=== PATIENT | female | born 1990 | race Caucasian/White ===

== ENCOUNTER 2018-12-21 00:51 | Outpatient (CLI) | payer MEDICAID ==
[~2018-12-21] VITALS: Ht 160 cm; Wt 99.9 kg
--- NOTE | 2018-12-21 00:55 | NUR ---
JESSI OLMEDO presented to unit via wheelchiar from ED, accompanied by s/o , with c/o CONTRACTIONS. JESSI OLMEDO weighed, gowned, voided, and to bed. EFHM and TOCO applied, VS taken. JESSI OLMEDO oriented to bed controls, call light, TV, heat, and A/C controls.
[2018-12-21 01:23] LABS: BILIRUBIN,URINE NEGATIVE (NEGATIVE); CLARITY,URINE CLEAR; COLOR,URINE YELLOW; GLUCOSE, URINE (UA) NEGATIVE (NEGATIVE); KETONES,URINE NEGATIVE (NEGATIVE); LEUKOCYTE ESTERASE ,URINE 2+ (NEGATIVE); NITRITE,URINE NEGATIVE (NEGATIVE); PH,URINE 7 (5-9); PROTEIN,URINE NEGATIVE (NEGATIVE); UROBILINOGEN,URINE NORMAL (NORMAL)
[2018-12-21 01:30] LABS: BACTERIA,URINE TRACE /HPF
[2018-12-21 02:26] VITALS: BP 120/72
[2018-12-21] MEDS ORDERED: hydrOXYzine (VISTARIL/ATARAX) 25 MG capsule/tablet PO ONE (03:15)
--- NOTE | 2018-12-21 05:55 | NUR ---
Discharge packet given and explained, no ss distress, no concerns noted, understanding voiced by pt, ambulatory off unit at this time accompanied by s/o.
--- NOTE | 2018-12-21 06:05 | NUR ---
NO RECORD AVAILABLE AT TIME OF VISIT GBS results present and negative.
--- NOTE | 2018-12-24 15:58 | Physician Query-Final Dx ---
LATIA OWEN 12/24/18 1558: Clinic Account Progress/Dx Physician Query: Please give diagnosis Please be sure to add the weeks of gestations Date of Service Dec 21, 2018 at 00:51 RAMIRO PEPE 12/27/18 1657: LATIA OWEN Dec 24, 2018 15:58 RAMIRO PEPE Dec 27, 2018 16:57
== END 2018-12-21 05:55 | disposition home or self-care (01) ==
LOC: WSo 00:51 → LDRP 00:53 → WSo 05:55
PROVIDERS: ATTEND Family Medicine
DX: O62.9 Abnormality of forces of labor, unspecified (principal); Z3A.39 39 weeks gestation of pregnancy
CPT/HCPCS: 81000; 99214

== ENCOUNTER 2018-12-28 05:47 | Inpatient (IN) | payer MEDICAID ==
[~2018-12-28] VITALS: Ht 160 cm; Wt 100.7 kg
[2018-12-28] VITALS (50 sets, daily range): BP systolic 82–166; BP diastolic 45–92
--- NOTE | 2018-12-28 05:50 | NUR ---
JESSI OLMEDO presented to unit via ambulation from home/ED, accompanied by SO, for INDUCTION. JESSI OLMEDO weighed, gowned, voided, and to bed. EFHM and TOCO applied, VS taken. JESSI OLMEDO oriented to bed controls, call light, TV, heat, and A/C controls.
[2018-12-28] MEDS ORDERED: MINERAL OIL CONCENTRATE 99.9% 15 ML UDC TOP PRN (06:15)
[2018-12-28 06:25] LABS: BASOPHILS % (AUTO) 0 % (0-10); EOSINOPHILS # (AUTO) 0.1 10^3/uL (0.0-0.3); EOSINOPHILS % (AUTO) 1 % (0-10); HEMATOCRIT 33 % (35-52); HEMOGLOBIN 11.1 G/DL (11.5-16.0); LYMPHOCYTES # (AUTO) 1.7 X 10^3 (1.0-4.0); LYMPHOCYTES % (AUTO) 21 % (12-44); MEAN CORPUSCULAR HEMOGLOBIN 31 PG (25-34); MEAN CORPUSCULAR HGB CONC 33 G/DL (32-36); MEAN CORPUSCULAR VOLUME 94 FL (80-99); MEAN PLATELET VOLUME 10.3 FL (7.4-10.4); MONOCYTES # (AUTO) 0.8 X 10^3 (0.0-1.0); MONOCYTES % (AUTO) 10 % (0-12); NEUTROPHILS # (AUTO) 5.4 X 10^3 (1.8-7.8); NEUTROPHILS % (AUTO) 68 % (42-75); PLATELET COUNT 178 10^3/uL (130-400)
[2018-12-28] MEDS ORDERED: OXYTOCIN/NORMAL SALINE 500 ML IV ONE (07:07)
[2018-12-28] MEDS: D5 LR IV SOLUTION 1,000 ML IV SCH ×3 (07:18→11:12)
--- NOTE | 2018-12-28 07:45 | NUR ---
Cervix very high and posterior. Dr Moreland notified - will proceed with pitocin induction. Physician stated she was 3cms and posterior in office.
[2018-12-28] MEDS ORDERED: OXYTOCIN/NORMAL SALINE 500 ML IV SCH ×3 (08:00→15:30)
[2018-12-28] MEDS ORDERED: SUFENTA 0.6MCG/ML BUPIVA 0.125 100 ML ONE (09:34)
[2018-12-28] MEDS ORDERED: LACTATED RINGERS 1,000 ML IV SCH (10:42)
[2018-12-28] MEDS ORDERED: METOCLOPRAMIDE INJ 10 MG/2 ML (REGLAN) IV PRN (10:45)
[2018-12-28] MEDS ORDERED: ONDANSETRON 4 MG/2 ML (SDV) Z0FRAN IV PRN (10:45)
[2018-12-28] MEDS ORDERED: NALOXONE 0.4 MG/ML 1 ML (NARCAN) VIAL IV PRN ×2 (10:45)
[2018-12-28] MEDS ORDERED: diphenhydrAMINE 50 MG/ML INJ (BENADRYL) IV PRN (10:45)
[2018-12-28] MEDS ORDERED: EPIDURAL (SUFENTA 0.6MCG/ML BUPIVA 0.125%) 100 ML BAG EPI SCH (10:45)
--- NOTE | 2018-12-28 12:22 | Labor Progress Note ---
Labor Progress Note Labor Progress Note Date Seen by Provider: Dec 28, 2018 Time Seen by Provider: 12:00 Subjective: Pt denies complaints. Objective: Cervical exam: 5cm Consistency: soft Position: mid-posterior Presentation: vtx heart tones: 140 beats per minute, good variability, reactive Tocometer: q2min Assessment/Plan: Aneta Jett is a (28 /Para / ,Gestational Age (wks)39 here for IOL. CEFM/TOCO Continue pitocin AROM w/ clear fluid, reassuring FHT. Anesthesia: epidural, pt is comfortable Anticipate vaginal delivery. Vitals - Labs Vital Signs - I&O Vital Signs Date Time Temp Pulse Resp B/P (MAP) Pulse Ox O2 Delivery O2 Flow Rate FiO2 12/28/18 06:14 98.7 96 18 104/68 (80) Room Air Labs Laboratory Tests 12/28/18 06:05: White Blood Count 8.0, Red Blood Count 3.56L, Hemoglobin 11.1L, Hematocrit 33L, Mean Corpuscular Volume 94, Mean Corpuscular Hemoglobin 31, Mean Corpuscular Hemoglobin Concent 33, Red Cell Distribution Width 14.0, Platelet Count 178, Mean Platelet Volume 10.3, Neutrophils (%) (Auto) 68, Lymphocytes (%) (Auto) 21, Monocytes (%) (Auto) 10, Eosinophils (%) (Auto) 1, Basophils (%) (Auto) 0, Neutrophils # (Auto) 5.4, Lymphocytes # (Auto) 1.7, Monocytes # (Auto) 0.8, Eosinophils # (Auto) 0.1, Basophils # (Auto) 0.0 RICK SOLORZANO DO Dec 28, 2018 12:22
[2018-12-28] MEDS ORDERED: CATHETER FLUSH 10 ML SYR IV SCH ×2 (14:00→22:00)
[2018-12-28] MEDS ORDERED: LIDOCAINE/EPI 2% 1:200,00 (XYLOCAINE) 10 ML VIAL ONE (14:24)
--- NOTE | 2018-12-28 14:57 | History & Physical-OB ---
OB - Chief Complaint & HPI Date/Time Date of Admission: Date of Admission: Dec 28, 2018 at 05:47 Date seen by a Provider: Dec 28, 2018 Time Seen by a Provider: 14:20 Chief Complaint/History OB-Reason for Admission/Chief: Induction of Labor Hx : 3 Hx Para: 2 Expected Date of Delivery: Jan 04, 2019 Gestational Age in Weeks: 39 Gestational Age in Days: 0 Indication for induction: maternal distance Admission Nurse Assessment Rev: Yes Allergies and Home Medications Allergies Coded Allergies: Penicillins (Verified Allergy, Severe, Anaphylaxis, 12/21/18) codeine (Verified Allergy, Severe, Anaphylaxis, 12/21/18) latex (Verified Allergy, Intermediate, Rash, 12/21/18) Home Medications No Active Prescriptions or Reported Meds Patient Home Medication List Home Medication List Reviewed: Yes OB - History Hx of Present Care: Yes Ultrasounds: Normal mid trimester US Obstetrical Complications: None Medical Complications: None Patient Past Medical History previously healthy Social History/Family History HIV/AIDS: No Sexually Transmitted Disease: No Alcohol Use: Denies Use Recreational Drug Use: No Immunizations Hepatitis A: No Hepatitis B: No OB - Admission Exam Physical Exam Vitals: Vital Signs 12/28/18 06:14 Temp 98.7 Pulse 96 Resp 18 B/P (MAP) 104/68 (80) O2 Delivery Room Air HEENT: NCAT Heart: Rhythm Normal Lungs: Clear Abdomen: Gravid Extremities: Normal Reflexes: Normal Cervical Dilatation: 10cm Effacement: 100% Station: 0 Membranes: Ruptured Amniotic Fluid: Clear Heart Rate: 130's Accelerations: Accelerations Present Decelerations: No Decelerations Short Term Variability: Present Hrbp Variability: Average (6-25) Contractions on Admission: None Labs Laboratory Tests Test 12/28/18 06:05 Range/Units White Blood Count 8.0 4.3-11.0 10^3/uL Red Blood Count 3.56 L 4.35-5.85 10^6/uL Hemoglobin 11.1 L 11.5-16.0 G/DL Hematocrit 33 L 35-52 % Mean Corpuscular Volume 94 80-99 FL Mean Corpuscular Hemoglobin 31 25-34 PG Mean Corpuscular Hemoglobin Concent 33 32-36 G/DL Red Cell Distribution Width 14.0 10.0-14.5 % Platelet Count 178 130-400 10^3/uL Mean Platelet Volume 10.3 7.4-10.4 FL Neutrophils (%) (Auto) 68 42-75 % Lymphocytes (%) (Auto) 21 12-44 % Monocytes (%) (Auto) 10 0-12 % Eosinophils (%) (Auto) 1 0-10 % Basophils (%) (Auto) 0 0-10 % Neutrophils # (Auto) 5.4 1.8-7.8 X 10^3 Lymphocytes # (Auto) 1.7 1.0-4.0 X 10^3 Monocytes # (Auto) 0.8 0.0-1.0 X 10^3 Eosinophils # (Auto) 0.1 0.0-0.3 10^3/uL Basophils # (Auto) 0.0 0.0-0.1 10^3/uL OB - Assessment/Plan/Diagnosis Assessment Assessment: induction of labor Admission Dx here for induction at 39 0/7 wga. Admission Status: Inpatient Order (span 2 midnights) Reason for Inpatient Admission: Induction of labor. Plan Induction Method: per Pitocin Protocol MULUGETA PANCHAL MD Dec 28, 2018 14:57
--- NOTE | 2018-12-28 14:59 | OB Labor & Delivery Record ---
Vag Delivery Note Vag Delivery Note Date of Delivery: 12/28/18 Preoperative Diagnosis: Aneta Jett is a (28 /Para 3 / 2, Gestational Age (wks)39with [0 days] Postoperative Diagnosis: Same Surgeon: MULUGETA PANCHAL Dozer Operator: [none] Anesthesia: [epidural] Delivery Type: [] Findings: [] Viable [male] infant, apgars [8/9] Lacerations: Intact placenta with 3 vessel cord. No nuchal cord, body cord or shoulder dystocia Estimated Blood Loss: [200] ml Complications: None Condition: Stable Description of Procedure: The patient is a 28 year old female who presented [for induction of labor]. She was admitted and informed consent was obtained. Her labor course was remarkable for [nothing] She progressed to complete dilatation and began to push. She was then set up for delivery. The 's head was delivered atraumatically in the [OA] position. The shoulders and remainder of the infant's body were then delivered without difficulty. Upon delivery, the infant was bulb suctioned and then placed on maternal abdomen after 60 seconds. Cord clamped and cut by father. An intact placenta with 3-vessel cord delivered via Rosalie and there was found to be minimal bleeding.~ Vigorous fundal massage was performed and the fundus was found to be firm. IV oxytocin was given. Examination of the vagina and perineum revealed no lacerations. Following the repair, sponge, instrument and needle counts were correct. Mom and baby were both in stable condition in the labor suite. Vitals - Labs Vital Signs - I&O Vital Signs Date Time Temp Pulse Resp B/P (MAP) Pulse Ox O2 Delivery O2 Flow Rate FiO2 12/28/18 06:14 98.7 96 18 104/68 (80) Room Air Labs Laboratory Tests 12/28/18 06:05: White Blood Count 8.0, Red Blood Count 3.56L, Hemoglobin 11.1L, Hematocrit 33L, Mean Corpuscular Volume 94, Mean Corpuscular Hemoglobin 31, Mean Corpuscular Hemoglobin Concent 33, Red Cell Distribution Width 14.0, Platelet Count 178, Mean Platelet Volume 10.3, Neutrophils (%) (Auto) 68, Lymphocytes (%) (Auto) 21, Monocytes (%) (Auto) 10, Eosinophils (%) (Auto) 1, Basophils (%) (Auto) 0, N eutrophils # (Auto) 5.4, Lymphocytes # (Auto) 1.7, Monocytes # (Auto) 0.8, Eosinophils # (Auto) 0.1, Basophils # (Auto) 0.0 MULUGETA PANCHAL MD Dec 28, 2018 14:59
[2018-12-28] MEDS ORDERED: MEASLES,MUMPS,RUBELLA 1 EA INJ SQ ONE (15:00)
[2018-12-28] MEDS ORDERED: WITCH HAZEL(TUCKS) 40 EA JAR TOP PRN (15:00)
[2018-12-28] MEDS ORDERED: BENZOCAINE/MENTHOL (DERMOPLAST) 56 ML CAN TP PRN (15:00)
[2018-12-28] MEDS ORDERED: TETANUS,DIPTH,PERTUSS P/F (BOOSTRIX) 0.5 ML VIAL IM ONE (15:00)
--- NOTE | 2018-12-28 15:15 | NUR ---
Epidural dc'd without difficulty. Infant nursed 20 minutes each side at 1530.
[2018-12-28] MEDS: IBUPROFEN 600 MG (MOTRIN) TAB PO SCH ×2 (16:59→22:34)
[2018-12-28] MEDS: DOCUSATE SODIUM 100 MG (COLACE) CAP PO SCH (20:07)
[2018-12-29 00:40] VITALS: BP 95/52
[2018-12-29] MEDS: IBUPROFEN 600 MG (MOTRIN) TAB PO SCH ×4 (04:38→22:10)
[2018-12-29 04:40] VITALS: BP 97/54
[2018-12-29 06:45] LABS: BASOPHILS % (AUTO) 0 % (0-10); EOSINOPHILS % (AUTO) 1 % (0-10); HEMATOCRIT 32 % (35-52); HEMOGLOBIN 10.1 G/DL (11.5-16.0); LYMPHOCYTES # (AUTO) 1.2 X 10^3 (1.0-4.0); LYMPHOCYTES % (AUTO) 15 % (12-44); MEAN CORPUSCULAR HEMOGLOBIN 30 PG (25-34); MEAN CORPUSCULAR HGB CONC 32 G/DL (32-36); MEAN CORPUSCULAR VOLUME 95 FL (80-99); MONOCYTES # (AUTO) 0.7 X 10^3 (0.0-1.0); MONOCYTES % (AUTO) 9 % (0-12); NEUTROPHILS # (AUTO) 5.7 X 10^3 (1.8-7.8); NEUTROPHILS % (AUTO) 76 % (42-75); PLATELET COUNT 132 10^3/uL (130-400); RED CELL DISTRIBUTION WIDTH 14.2 % (10.0-14.5); WHITE BLOOD COUNT 7.6 10^3/uL (4.3-11.0)
--- NOTE | 2018-12-29 08:00 | NUR ---
PT SLEEPING AT THIS TIME.
[2018-12-29 09:00] VITALS: BP 121/63
--- NOTE | 2018-12-29 09:00 | NUR ---
ASSESSMENT COMPLETED. VSS. ICE PACK TO PERINEUM. MILD BRUISING NOTED.
[2018-12-29] MEDS: DOCUSATE SODIUM 100 MG (COLACE) CAP PO SCH ×2 (09:59→22:09)
--- NOTE | 2018-12-29 10:03 | Anesthesia-Regional Post-Op ---
Regional Patient Condition Mental Status: Alert, Oriented x3 Circulation: Same as Pre-Op Headache: Absent Sensation: Full Recovery Motor Block: Absent Post Op Complications Complications None Follow Up Care/Instructions Patient Instructions None needed. Anesthesia/Patient Condition Patient is doing well, no complaints, stable vital signs, no apparent adverse anesthesia problems. No complications reported per nursing. [place] [facility] [place] Yes JEF RUBY CRNA Dec 29, 2018 10:03
--- NOTE | 2018-12-29 10:30 | NUR ---
CARING FOR INFANT IN ROOM. GOOD INTERACTION NOTED.
--- NOTE | 2018-12-29 10:48 | Progress Note ---
Subjective Subjective/Events-last exam Latching well. Having some pain with motrin. Bleeding has slowed. Up and walking around. No concerns. Objective Exam Last Set of Vital Signs Vital Signs Date Time Temp Pulse Resp B/P (MAP) Pulse Ox O2 Delivery O2 Flow Rate FiO2 12/29/18 04:40 97.8 88 20 97/54 (68) 97 Room Air Capillary Refill : I&O Intake and Output 12/29/18 00:00 Intake Total 3810 ml Output Total 300 ml Balance 3510 ml Intake IV Total 3810 ml Output Urine Total 300 ml # Voids 1 Daily Weight Change No General: Alert, Oriented X3 HEENT: Atraumatic Abdomen: Other (fundus firm below umbilicus) Extremities: Other (edema bilaterally; My's negative) Results/Procedures Lab Laboratory Tests 12/29/18 06:26: White Blood Count 7.6, Red Blood Count 3.34L, Hemoglobin 10.1L, Hematocrit 32L, Mean Corpuscular Volume 95, Mean Corpuscular Hemoglobin 30, Mean Corpuscular Hemoglobin Concent 32, Red Cell Distribution Width 14.2, Platelet Count 132, Mean Platelet Volume 10.0, Neutrophils (%) (Auto) 76H, Lymphocytes (%) (Auto) 15, Monocytes (%) (Auto) 9, Eosinophils (%) (Auto) 1, Basophils (%) (Auto) 0, Neutrophils # (Auto) 5.7, Lymphocytes # (Auto) 1.2, Monocytes # (Auto) 0.7, Eosinophils # (Auto) 0.0, Basophils # (Auto) 0.0 Assessment/Plan Assessment/Plan Admission Dx Post- vaginal delivery at 39 weeks day 1. Admission Status: Inpatient Order (span 2 midnights) (1) care following vaginal delivery Assessment & Plan: Doing well. Add tylenol prn. Continue motrin. Home tomorrow. (2) 39 weeks gestation of Clinical Quality Measures DVT/VTE Risk/Contraindication: Risk Factor Score Per Nursin RFS Level Per Nursing on Admit: 1=Low/No VTE PPX MULUGETA PANCHAL MD Dec 29, 2018 10:48
--- NOTE | 2018-12-29 11:42 | NUR ---
PT HAS HAD THE TDAP VACCINE.
[2018-12-29 12:00] VITALS: BP 114/74
[2018-12-29] MEDS: ACETAMINOPHEN 500 MG TAB (TYLENOL) PO PRN ×2 (12:32→22:10)
[2018-12-29 16:00] VITALS: BP 116/69
--- NOTE | 2018-12-29 16:00 | NUR ---
VSS. ICE PACK GIVEN. CARING FOR IN ROOM. GOOD INTERACTION NOTED.
--- NOTE | 2018-12-29 18:00 | NUR ---
EATING STORK MEAL. OFFERS NO COMPLAINTS.
--- NOTE | 2018-12-29 20:54 | NUR ---
pt sitting up in bed. assessment completed. pt denies any needs at this time. family at bedside. will continue to monitor.
[2018-12-29 22:11] VITALS: BP 119/78
[2018-12-30 03:46] VITALS: BP 112/66
[2018-12-30] MEDS: IBUPROFEN 600 MG (MOTRIN) TAB PO SCH ×2 (03:46→10:00)
[2018-12-30 08:00] VITALS: BP 118/71
--- NOTE | 2018-12-30 08:00 | NUR ---
A.M. ASSESSMENT COMPLETED. VSS. ANXIOUS TO GO HOME. S.O. AT BEDSIDE.
--- NOTE | 2018-12-30 08:25 | NUR ---
DR. PANCHAL HERE TO SEE PT.
--- NOTE | 2018-12-30 08:58 | Discharge Instructions ---
Discharge Inst-[facility] Reconcile Patient Problems Problems Reviewed?: Yes Depart Medications New, Converted or Re-Newed RX: Transmitted to Pharmacy Final Diagnosis vaginal delivery. Medication Profile: No Active Prescriptions or Reported Meds Follow Up/Instructions Goal/Follow Up: Dr. Panchal in 6 weeks. Activity Activity: Activity as Tolerated Driving Instructions: You May Drive NO SMOKING: NO SMOKING Nothing Inside Vagina: No Douching, No Pillow, No Tampons Diet Discharge Diet: No Restrictions Symptoms to Report to : Extremity Discoloration, Bleeding Excessive, Fever Over 101 Degrees F, Urination Difficulty, Vaginal Bleeding Increase For Any Problems or Questions: Contact Your Physician MULUGETA PANCHAL MD Dec 30, 2018 08:58
[2018-12-30] MEDS: DOCUSATE SODIUM 100 MG (COLACE) CAP PO SCH (09:00)
--- NOTE | 2018-12-30 09:02 | OB Labor & Delivery Record ---
L&D History Date of Service Date of Service: Dec 30, 2018 History Expected Date of Delivery: Jan 04, 2019 Gestational Age in Weeks: 39 Hx : 3 Hx Para: 3 Complications Events: Routine care Operative Indications (Cesarea: N/A-Vaginal Delivery Intrapartal Events: None L&D Stage1 Monitors and Tracing Monitor Mode: External Heart Rate: 130 Station: -3 Vital Signs VS - Last 72 Hours, by Label 12/28/18 12/28/18 12/28/18 12/28/18 06:14 08:20 08:30 08:45 Temp 98.7 Pulse 96 71 74 74 Resp 18 16 16 16 B/P (MAP) 104/68 (80) 112/62 (79) 110/68 (82) 110/68 (82) O2 Delivery Room Air Room Air Room Air Room Air 12/28/18 12/28/18 12/28/18 12/28/18 09:00 09:15 09:30 09:45 Temp 97.5 Pulse 79 74 74 86 Resp 16 16 16 16 B/P (MAP) 110/61 (77) 125/58 (80) 125/58 (80) 120/68 (85) O2 Delivery Room Air Room Air Room Air Room Air 12/28/18 12/28/18 12/28/18 12/28/18 10:00 10:15 10:20 10:25 Pulse 97 93 111 109 Resp 16 20 20 B/P (MAP) 115/66 (82) 122/70 (87) 119/64 (82) 124/71 (88) Pulse Ox 100 99 100 O2 Delivery Room Air Room Air Room Air Room Air 12/28/18 12/28/18 12/28/18 12/28/18 10:28 10:29 10:34 10:40 Pulse 96 93 109 78 Resp 20 20 20 16 B/P (MAP) 109/72 (84) 118/64 (82) 115/61 (79) 107/54 (71) Pulse Ox 99 98 100 99 O2 Delivery Room Air Room Air Room Air Room Air 12/28/18 12/28/18 12/28/18 12/28/18 10:42 10:44 10:45 10:48 Pulse 71 68 96 82 Resp 16 20 20 B/P (MAP) 97/46 (63) 99/52 (68) 109/72 (84) 99/57 (71) Pulse Ox 99 99 99 O2 Delivery Room Air Room Air 12/28/18 12/28/18 12/28/18 12/28/18 10:51 10:52 11:00 11:05 Pulse 59 57 96 100 Resp 16 16 20 16 B/P (MAP) 82/45 (57) 82/47 (59) 89/53 (65) 125/68 (87) Pulse Ox 99 100 O2 Delivery Room Air Room Air Room Air 12/28/18 12/28/18 12/28/18 12/28/18 11:09 11:15 11:30 11:45 Pulse 99 13 96 111 Resp 16 16 20 16 B/P (MAP) 117/62 (80) () 89/53 (65) 110/73 (85) Pulse Ox 100 100 99 100 O2 Delivery Room Air Room Air Room Air 12/28/18 12/28/18 12/28/18 12/28/18 12:00 12:15 12:30 12:45 Pulse 127 113 112 106 Resp 16 16 16 16 B/P (MAP) 113/76 (88) 128/81 (97) 126/84 (98) 129/88 (102) Pulse Ox 100 100 100 100 O2 Delivery Room Air Room Air Room Air Room Air 12/28/18 12/28/18 12/28/18 12/28/18 13:00 13:15 13:30 13:45 Pulse 109 90 93 Resp 16 16 16 B/P (MAP) 133/92 (106) 121/75 (90) 117/81 (93) 130/83 (99) Pulse Ox 100 92 100 O2 Delivery Room Air Room Air Room Air 12/28/18 12/28/18 12/28/18 12/28/18 13:53 14:00 14:15 14:30 Pulse 101 123 112 111 Resp 16 16 16 16 B/P (MAP) 122/76 (91) 166/74 (104) 128/83 (98) 126/80 (95) Pulse Ox 100 100 100 100 O2 Delivery Room Air 12/28/18 12/28/18 12/28/18 12/28/18 14:45 15:00 15:15 15:30 Pulse 108 107 116 98 Resp 16 16 16 B/P (MAP) 125/59 (81) 122/64 (83) 137/71 (93) 134/68 (90) O2 Delivery Room Air Room Air 12/28/18 12/28/18 12/28/18 12/28/18 15:45 16:00 16:15 16:30 Pulse 98 97 99 95 Resp 16 16 16 16 B/P (MAP) 133/81 (98) 129/70 (89) 112/69 (83) 125/76 (92) O2 Delivery Room Air Room Air Room Air 12/28/18 12/28/18 12/29/18 12/29/18 16:45 19:17 00:40 04:40 Temp 98.3 97.8 97.8 Pulse 92 109 95 88 Resp 16 20 20 20 B/P (MAP) 131/81 (98) 98/51 (67) 95/52 (66) 97/54 (68) Pulse Ox 97 99 97 O2 Delivery Room Air Room Air Room Air 12/29/18 12/29/18 12/29/18 12/29/18 09:00 12:00 16:00 22:11 Temp 98.0 97.8 97.8 97.8 Pulse 95 104 91 62 Resp 18 18 18 18 B/P (MAP) 121/63 (82) 114/74 (87) 116/69 (85) 119/78 (92) Pulse Ox 97 97 97 97 O2 Delivery Room Air Room Air Room Air Room Air 12/30/18 03:46 Temp 98.7 Pulse 76 Resp 18 B/P (MAP) 112/66 (81) O2 Delivery Room Air Fundal Ht/Cervical Dilatation Uterus Position: -1 Rupture of Membranes Amniotic Membrane Rupture Time: 1206 L&D Stage2 Monitors and Tracing Monitor Mode: External Heart Rate: 130 Presentation: Vertex Delivery Type Delivery Method: Spontaneous Vaginal Episiotomy/Perineal Laceration Laceraction(s)/Extensions: No Condition of Delivery Delivery Date & Time: 12/28 at 1442 1 minute Comment: 8 5 minute Comment: 9 Condition of Condition of : Living Exam: No Observed Abnormalities Resuscitation Resuscitation: N/A - Spontaneous Resp L&D Stage3 Pictocin Pitocin Administration mu/min: 6 Pitocin ml/hr: 6 Placenta Delivery Placenta Delivery: Spontaneous Delivery Summary Summary Total Labor Time 7 hours Estimated blood loss (mL): 200 ml Attending at delivery: Dr. Moreland Condition of Delivery Examined: Cervix Examined Post Hemorrhage: MULUGETA Velasquez MD Dec 30, 2018 09:02
[2018-12-30] MEDS: ACETAMINOPHEN 500 MG TAB (TYLENOL) PO PRN (10:00)
--- NOTE | 2018-12-30 10:30 | NUR ---
DISCHARGE INSTRUCTIONS REVIEWED WITH PT AND COPY GIVEN. STATES UNDERSTANDING OF ALL INSTRUCTIONS AND NEED TO F/U SCHEDULED AND NEEDED.
[2018-12-30 11:10] VITALS: BP 118/71
--- NOTE | 2018-12-30 11:10 | NUR ---
DISMISSED AMB FROM [facility] WITH IN STABLE CONDITION TO [facility]ILY [facility] ACC BY BEBA YBARRA.
== END 2018-12-30 11:10 | disposition home or self-care (01) | DRG 807 ==
LOC: LDRP 05:47
PROVIDERS: ADMIT Family Medicine; ATTEND Family Medicine
PROC: 10E0XZZ Delivery of Products of Conception, External Approach (ICD-10-PCS; principal; 2018-12-28)
PROC: 3E033VJ Introduction of Other Hormone into Peripheral Vein, Percutaneous Approach (ICD-10-PCS; 2018-12-28)
DX: O80 Encounter for full-term uncomplicated delivery (principal); Z37.0 Single live birth; Z3A.39 39 weeks gestation of pregnancy
CPT/HCPCS: 36415; 85025; 86850; 86900; 86901

== ENCOUNTER → 2020-02-25 | Outpatient (CLI) | payer MEDICAID | LOC: LAB FS 10:10 | PROVIDERS: ATTEND Family Medicine | DX: R63.5 Abnormal weight gain (principal) | CPT/HCPCS: 36415; 84443 ==

== ENCOUNTER → 2020-11-12 | Outpatient (CLI) | payer MEDICAID ==
--- NOTE | 2020-11-12 12:03 | Diagnostic Imaging Report ---
INDICATION: Right upper quadrant pain. PROCEDURE: Ultrasound abdomen complete. TECHNIQUE: Multiple real-time grayscale images were obtained of the abdomen in various projections. The liver is upper limits of normal in size at 18 cm. No discrete liver mass is detected. Portal vein is patent and shows normal direction of flow. Gallbladder contains trace sludge. There are no stones. No wall thickening or biliary ductal dilatation is seen. The pancreas is unremarkable. Spleen is normal at 9.4 cm. Aorta is nonaneurysmal. IVC is patent. Right and left kidneys are without calculi or hydronephrosis. There is no ascites. IMPRESSION: Minimal gallbladder sludge. The study is otherwise unremarkable. There is no evidence of acute cholecystitis. Dictated by: Dictated on workstation # [id number]
== END ==
LOC: RAD FS 08:30
PROVIDERS: ATTEND Family Medicine
DX: R10.11 Right upper quadrant pain (principal)
CPT/HCPCS: 76700

== ENCOUNTER 2020-12-02 06:16 | Outpatient (CLI) | payer MEDICAID ==
[~2020-12-02] VITALS: Ht 160 cm; Wt 88.6 kg
[2020-12-02] MEDS ORDERED: NORE1TAB95 PO (11:24)
[2020-12-02] MEDS ORDERED: PANT40TA52 PO (11:24)
== END 2020-12-02 11:35 | disposition home or self-care (01) ==
LOC: PREOP 06:16
PROVIDERS: ATTEND Surgery
DX: Z01.818 Encounter for other preprocedural examination (principal)

== ENCOUNTER 2020-12-09 11:21 | Day surgery (SDC) | payer MEDICAID ==
[~2020-12-09] VITALS: Ht 160 cm; Wt 88.6 kg
[2020-12-09] VITALS (11 sets, daily range): BP systolic 118–127; BP diastolic 70–84
[~2020-12-09 11:21] MED LIST: NORE1TAB95 PO; PANT40TA52 PO
[2020-12-09] MEDS ORDERED: CLINDAMYCIN 600 MG/50 ML IVPB 50 ML IV ONE (11:45)
[2020-12-09] MEDS ORDERED: LACTATED RINGERS 1,000 ML IV PRN (11:45)
[2020-12-09] MEDS ORDERED: FAMOTIDINE 20MG/2ML IV (PEPCID) IV ONE (12:45)
[2020-12-09] MEDS ORDERED: ONDANSETRON 4 MG/2 ML (SDV) Z0FRAN IV ONE (12:45)
[2020-12-09] MEDS ORDERED: MIDAZOLAM 2 MG/2 ML (VERSED) VIAL IV ONE (12:45)
--- NOTE | 2020-12-09 12:55 | Progress Note-Pre Operative ---
Pre-Operative Progress Note H&P Reviewed The H&P was reviewed, patient examined and no changes noted. Time Seen by Provider: 12:51 Date H&P Reviewed: Dec 09, 2020 Time H&P Reviewed: 12:51 Pre-Operative Diagnosis: Cholelithiasis/Cholecystitis AXEL JONES DO Dec 09, 2020 12:55
[2020-12-09] MEDS ORDERED: LIDOCAINE/EPI 1%-1:100,000 (XYLOCAINE) 20ML ONE (13:16)
[2020-12-09] MEDS ORDERED: proPOfol 200 MG/20 ML (DIPRIVAN) VIAL IV ONE (13:31)
[2020-12-09] MEDS ORDERED: fentaNYL INJ 100 MCG/2 ML AMP ONE (13:31)
[2020-12-09] MEDS ORDERED: ONDANSETRON 4 MG/2 ML (SDV) Z0FRAN ONE (13:31)
[2020-12-09] MEDS ORDERED: LIDOCAINE PF 2% 5 ML (XYLOCAINE) VIAL ONE (13:31)
[2020-12-09] MEDS ORDERED: ROCURONIUM 10 MG/ML 5 ML SYRINGE IV ONE (13:31)
[2020-12-09] MEDS ORDERED: GLYCOPYRROLATE 0.2 MG/ML (ROBINUL) 2 ML VIAL ONE (14:29)
[2020-12-09] MEDS ORDERED: NEOSTIGMINE 3 MG/3 ML VIAL ONE (14:29)
[2020-12-09] MEDS ORDERED: SEVOFLURANE (ULTANE) 15 ML INHAL SOLN ONE (14:33)
--- NOTE | 2020-12-09 14:36 | Progress Note-Post Operative ---
Post-Operative Progess Note Surgeon (s)/Vocational Director (s) Surgeon AXEL JONES DO Vocational Director: Sapna Pre-Operative Diagnosis Cholelithiasis/Cholecystitis Post-Operative Diagnosis same Procedure & Operative Findings Date of Procedure 12/09/20 Procedure Performed/Findings PROCEDURE: Laparoscopic cholecystectomy with intraoperative cholangiogram. COMPLICATIONS: None. PROCEDURE: The patient was taken to the operating suite and was prepped and draped in sterile fashion. A surgical pause was performed. Just superior to the umbilicus, a 12 mm incision was made. Dissection was taken down to the fascia, which was then scored and grasped with a Radha and the abdomen was then entered. A 0 Vicryl suture was placed in a [id number] fashion and a Sands trocar was placed and secured. Pneumoperitoneum was achieved. A 5mm trochar place in the subxyphoid and 2 in the right upper quadrant. The gallbladder was then grasped and elevated. The cystic duct, and cystic artery were then dissected out. Clip was placed on the distal portion of the cystic duct which was then partially transected. An arrow catheter was inserted into the duct. The cholangiogram was then performed. No filing defects and contrast made its way into the duodenum. Catheter removed. Clips were placed on proximal portion of the cystic duct and then the duct was then transected. Clips were placed along the proximal and distal portion of the cystic artery which was then transected. Hook cautery was used to dissect the gallbladder from the gallbladder fossa achieving hemostasis. The gallbladder was placed in an Endobag and removed through the 12 mm trocar site. The abdomen was then reinspected. Copious amounts of irrigation were used to irrigate the abdomen and there were no signs of active bleeding. Hemostasis had been achieved. The 12 mm fascial defect was then closed with 0 Vicryl suture that had been placed in a [id number] fashion. The abdomen was then desufflated, the trocars were removed. The abdomen was then washed and dried. The skin was then closed using 4-0 Monocryl in a subcuticular fashion. The abdomen was washed and dried and Skin Affix was place over incisions. Patient tolerated the procedure well without any complications and was taken to the recovery room in stable condition. Dr. Alejo assisted on this case helping to make incisions, identify anatomy and hold anatomy out of the way. Anesthesia Type GET Estimated Blood Loss Estimated blood loss (mL): scant Specimens/Packing Specimens Removed GB and contents AXEL JONES DO Dec 09, 2020 14:36
[2020-12-09] MEDS ORDERED: ACHD5005 PO (14:37)
--- NOTE | 2020-12-09 14:38 | Discharge Inst-Surgical ---
Discharge Inst-Surgical Depart Medication/Instructions New, Converted or Re-Newed RX: Transmitted to Pharmacy Patient Instructions Follow up Appt: Make appointment for 1 week. [phone] Instructions: No lifting greater than 20 pounds. No strenuous activity. May shower in 24 hours, no tub bath or soaking. Use incentive spirometer at home as directed. No Smoking Skin/Wound Care: May remove bandages in am. You need to leave the Dermabond on incision it will fall off on it's own. Symptoms to Report: Appetite Changes, Extremity Discoloration, Numbness/Tingling, Swelling Increased, Bleeding Excessive, Eyesight Changes, Pain Increased, Urine Color Change, Constipation(Persistent), Fever over 101 degree F, Pain/Pressure in chest, Urinating Difficulty, Cough Up/Vomit Blood, Heart Beat Irreg/Pounding, Pain/Pressure in jaw, Cramps in feet or legs, Lightheadedness, Pain/Pressure in shoulder, Diarrhea(Persistent), Memory Changes Suddenly, Questions/Concerns, Weight gain consecutive days, Dizziness/Fainting, Nausea/Vomiting, Shortness of Breath, Weight gain over 2 pounds If questions or concerns contact your physician Or seek help at emergency department. Activity Activity as Tolerated: Yes Activity Instructions: Avoid Stress to Incision Driving Instructions: No Driving/Refer to Diet Discharge Diet: Avoid Fatty Foods, Low Fat/Low Cholesterol Diet After 24 Hours: Clear Liquid if Nauseous If Any Problems/Questions/Issu: Contact Your Physician, Go to Emergency Room Skin/Wound Care Infection Signs and Symptoms: Increased Redness, Foul Odor of Wound, Increased Drainage, Skin Itchy or Has a Rash, Increased Swelling, Temperature Above 101 F Wound Care Comment: heating pad to shoulder or neck tonight for pain Bathing Instructions: Shower Stitches/[place]/Dermabond Dis: Dermabond Ice Pack: Ice On and Off Site AXEL JONES DO Dec 09, 2020 14:38
--- NOTE | 2020-12-09 14:53 | Anesthesia-General Post-Op ---
General Patient Condition Mental Status/LOC: Same as Preop Cardiovascular: Satisfactory Nausea/Vomiting: Absent Respiratory: Satisfactory Pain: Controlled Complications: Absent Post Op Complications Complications None Follow Up Care/Instructions Patient Instructions None needed. Anesthesia/Patient Condition Patient Condition Patient is doing well, no complaints, stable vital signs, no apparent adverse anesthesia problems. No complications reported per nursing. GRAYSON BONDS CRNA Dec 09, 2020 14:53
[2020-12-09] MEDS ORDERED: fentaNYL INJ 100 MCG/2 ML AMP IVP ONE (15:00)
[2020-12-09] MEDS ORDERED: morphine INJ 10 MG/ML 1ML (SYR OR VIAL) IVP ONE (15:00)
[2020-12-09] MEDS ORDERED: ONDANSETRON 4 MG/2 ML (SDV) Z0FRAN IVP PRN (15:00)
[2020-12-09] MEDS ORDERED: morphine INJ 10 MG/ML 1ML (SYR OR VIAL) ONE (15:01)
--- NOTE | 2020-12-09 15:37 | Diagnostic Imaging Report ---
EXAMINATION: Fluoroscopy up to one hour. INDICATION: Abdominal pain. TECHNIQUE: Fluoroscopic assistance was provided for Dr. Ramesh Gifford during his laparoscopic cholecystectomy procedure. 11.5 seconds of fluoroscopy time was utilized. 30 spot films of the right upper quadrant were obtained. FINDINGS: There is a laparoscopic device in place. The common bile duct has been opacified via a cystic duct catheter. The common bile duct does not seem to be dilated and there is no definite defect to indicate a retained calculus. Contrast is seen extending into the small bowel. IMPRESSION: Fluoroscopic assistance was provided for Dr. Gifford. Dictated by: Dictated on workstation # [id number]
[2020-12-09] MEDS ORDERED: HYDROcodone/APAP 5 MG/325 MG (LORTAB) TAB ONE (16:05)
[2020-12-09] MEDS ORDERED: HYDROcodone/APAP 5 MG/325 MG (LORTAB) TAB PO ONE (16:15)
== END 2020-12-09 16:45 | disposition home or self-care (01) ==
LOC: SDC 11:21
PROVIDERS: ATTEND Surgery
DX: K81.1 Chronic cholecystitis (principal); K82.8 Other specified diseases of gallbladder; J45.909 Unspecified asthma, uncomplicated; G43.909 Migraine, unspecified, not intractable, without status migrainosus; K21.9 Gastro-esophageal reflux disease without esophagitis; Z79.899 Other long term (current) drug therapy; Z82.49 Family history of ischemic heart disease and other diseases of the circulatory system; Z80.9 Family history of malignant neoplasm, unspecified
CPT/HCPCS: 76000; 84703; 87081